=== PATIENT | male | born 1960 | race Two or more races ===

== ENCOUNTER 2018-11-12 13:30 | Emergency (ER) | payer MEDICAID, OTHER ==
[~2018-11-12] VITALS: Ht 167.6 cm; Wt 79.4 kg
[2018-11-12 15:27] LABS: Basophils % (auto) 0.6 % (0.0-2.0); Eosinophils # (auto) 0.1 uL; Lymphocytes # (auto) 2.1 uL; Monocytes # (auto) 0.5 uL; Monocytes % (auto) 6.6 % (0.0-12.0)
[2018-11-12 15:29] LABS: Basophils # (auto) 0 uL; Eosinophils % (auto) 1.6 % (0.0-7.0); Hematocrit 53.3 % (41.0-53.0); Hemoglobin 18.1 g/dL (13.5-17.5); Lymphocytes % (auto) 27.5 % (10.0-50.0); Mean Corpuscular Hemoglobin 29.9 pg (28.0-32.0); Mean Corpuscular Hgb Conc. 33.9 g/dL (32.0-36.0); Mean Corpuscular Volume 88.2 fL (80.0-100.0); Neutrophils # (auto) 4.9 uL; Neutrophils % (auto) 63.7 % (37.0-80.0); Nucleated Red Blood Cells % 0.3 %; Platelet Count (auto) 169 10^3/uL (140-450); Red Blood Cells 6.05 10^6/uL (4.5-5.90); Red Cell Distribution Width 13.8 % (11.8-14.3); White Blood Cell 7.8 10^3/uL (4.4-10.8)
[2018-11-12 15:46] LABS: Anion Gap 7 (5-15); BUN/Creatinine Ratio 21.5; Blood Alcohol < 3.0 mg/dL (0-5); Blood Urea Nitrogen 17 mg/dL (7-18); Calcium 8.8 mg/dL (8.5-10.1); Carbon Dioxide 27 mmol/L (21-32); Chloride 105 mmol/L (98-107); GFR African American 129 mL/min; GFR Non-African American 107 mL/min; Glucose 337 mg/dL (74-106); Potassium 3.4 mmol/L (3.5-5.1); Sodium 139 mmol/L (136-145)
[2018-11-12 15:59] LABS: Alcohol, Urine < 3.0 mg/dL (0-5); Amphetamine Screen, Urine NEGATIVE (NEGATIVE); Barbiturate Scree,Urine NEGATIVE (NEGATIVE); Benzodiazephine Screen, Urine NEGATIVE (NEGATIVE); Cannabinoid Screen, Urine NEGATIVE (NEGATIVE); Cocaine Screen, Urine NEGATIVE (NEGATIVE); Opiate Scree,Urine NEGATIVE (NEGATIVE); Phencyclidine Screen, Urine NEGATIVE (NEGATIVE)
[2018-11-12] MEDS ORDERED: cloNIDine HCL 0.1 MG TAB PO ONE (16:15)
[2018-11-13] MEDS ORDERED: cloNIDine HCL 0.1 MG TAB PO ONE ×2 (04:30→21:15)
[2018-11-13] MEDS ORDERED: ACETAMINOPHEN 500 MG TAB PO ONE (21:15)
[2018-11-14] MEDS ORDERED: DEXTROSE (50%) 50ML SYRG IV PRN (08:00)
[2018-11-14] MEDS ORDERED: InsuLIN REG 1unit/0.01ml Soln (100units/ml) SC ONE (08:30)
[2018-11-14] MEDS ORDERED: DOCUSATE SOD 100 MG CAP PO ONE (10:00)
[2018-11-14] MEDS ORDERED: cloNIDine HCL 0.1 MG TAB ONE (10:19)
[2018-11-14] MEDS: cloNIDine HCL 0.1 MG TAB PO SCH ×2 (10:28→17:52)
[2018-11-14] MEDS: ACCU-CHEK COMFORT CURVE STRIP VI SCH ×3 (11:45→22:13)
[2018-11-14] MEDS: InsuLIN REG 1unit/0.01ml Soln (100units/ml) SC SCH ×3 (12:45→22:13)
[2018-11-14] MEDS ORDERED: cloNIDine HCL 0.1 MG TAB PO ONE (18:00)
[2018-11-15] MEDS: ACCU-CHEK COMFORT CURVE STRIP VI SCH ×4 (08:00→22:45)
[2018-11-15] MEDS: InsuLIN REG 1unit/0.01ml Soln (100units/ml) SC SCH ×4 (08:00→23:30)
[2018-11-15] MEDS ORDERED: IBUPROFEN 600 MG TAB PO ONE (08:15)
[2018-11-15] MEDS ORDERED: ACETAMINOPHEN 325 MG TAB PO PRN (08:15)
[2018-11-15] MEDS: cloNIDine HCL 0.1 MG TAB PO SCH ×2 (11:01→23:30)
[2018-11-16] MEDS: ACCU-CHEK COMFORT CURVE STRIP VI SCH (07:00)
[2018-11-16] MEDS: InsuLIN REG 1unit/0.01ml Soln (100units/ml) SC SCH (07:00)
[2018-11-16 09:44] VITALS: BP 158/71
== END 2018-11-16 14:09 | disposition home or self-care (01) ==
LOC: EDBD 13:30 → ER 13:33 → EDBD 13:33 → ER 11-14 07:51
DX: S50.812A Abrasion of left forearm, initial encounter (principal); E11.9 Type 2 diabetes mellitus without complications; I10 Essential (primary) hypertension; Z86.73 Personal history of transient ischemic attack (TIA), and cerebral infarction without residual deficits; X78.8XXA Intentional self-harm by other sharp object, initial encounter; Y99.8 Other external cause status; Y93.89 Activity, other specified; Y92.89 Other specified places as the place of occurrence of the external cause
CPT/HCPCS: 36415; 80048; 80307; 80320; 82962; 85025; 96372; 99285; J1815